=== PATIENT | male | born 1990 ===

== ENCOUNTER 2018-05-08 12:38 | Emergency (ER) | payer SELFPAY ==
[~2018-05-08] VITALS: Ht 180.3 cm; Wt 69.9 kg
[2018-05-08] MEDS ORDERED: OMEPRAZOLE10 M1 ORAL (12:53)
[2018-05-08 13:08] VITALS: BP 121/68
--- NOTE | 2018-05-08 13:13 | Emergency Room Report ---
History of Present Illness General Chief Complaint: Sore Throat Source: Patient Present Illness HPI 27-year-old male patient presents to ER complaining of sore throat and earache for the past 4 days. Reports that he has been able to eat during this time but it hurts to swallow. Reports intermittent fever up to 101. Reports treating it with Advil at home which releases fever symptoms. Denies chest pain, shortness of breath, abdominal pain, vomiting. Also complains of bilateral earache. Denies tinnitus or vision changes. Reports that he uses Q-tips at home. Denies other acute symptoms. Denies cough. Allergies: Coded Allergies: No Known Allergies (Unverified , 05/08/18) Patient History Past Medical History: see triage record Reviewed Nursing Documentation: PMH: Agreed; PSxH: Agreed Nursing Documentation-PMH Past Medical History: No History, Except For Review of Systems All Other Systems: negative except mentioned in HPI Physical Exam Vital Signs Date Time Temp Pulse Resp B/P (MAP) Pulse Ox O2 Delivery O2 Flow Rate FiO2 05/08/18 12:49 98.9 74 17 121/68 97 Room Air 99.0 Sp02 EP Interpretation: reviewed, normal General Appearance: well appearing, no apparent distress, alert, GCS 15, non- toxic Head: normocephalic, atraumatic Eyes: bilateral eye normal inspection, bilateral eye PERRL ENT: hearing grossly normal, normal pharynx, no angioedema, normal voice, TMs + canals normal - cerumen impaction bilaterally, uvula midline, moist mucus membranes, tonsillar swelling, pharyngeal erythema, tonsillar exudate Neck: full range of motion Respiratory: lungs clear, normal breath sounds, no rhonchi, no respiratory distress, no accessory muscle use, no wheezing, speaking full sentences Cardiovascular #1: regular rate, rhythm, no edema Psychiatric: mood/affect normal Skin: no rash Lymphatic: adenopathy - cervical Medical Decision Making PA Attestation Dr. Jacobs is my supervising Physician whom patient management has been discussed with. Diagnostic Impression: Primary Impression: Pharyngitis Additional Impression: Cerumen impaction ER Course Pt presents to ED c/o sore throat and earache. DDX considered but are not limited to pharyngitis, laryngitis, URI, peritonsillar abscess, tonsillitis. Low suspicion for peritonsillar abscess, no neck stiffness, no hot potato voice , no stridor. Does not require imaging at this time. VITAL SIGNS are WNL, patient is afebrile. Ordered Tylenol, viscous lidocaine and hydrogen peroxide. ER COURSE: Physical exam shows patient to have pharyngeal erythema, exudates, cervical lymphadenopathy reports fever, afebrile in ER however taking Advil at home, denies cough, likely pharyngitis, will provide antibiotic tx to patient. Salt water gargles. Tylenol for pain. Bilateral ear canals show cerumen impaction, ordered hydrogen peroxide to remove cerumen from ears. likely causing ear symptoms. Following removal of cerumen, TMs show no erythema, light reflex intact bilaterally, no TM perforation. Mild cerumen still remaining in ear canals bilaterally, will provide deep debrox at discharge. Do not use Q-tips. Patient reports feeling better following administration of medication DISCHARGE: Rx provided for Amoxicillin Rx provided for Tylenol for pain and fever symptoms Rx provided for Debrox At this time pt is stable for d/c to home. Patient is resting comfortably, in no acute distress, nontoxic appearing, talking without difficulty. Will provide with patient care instructions and any necessary prescriptions. Patient to take medication as instructed. Care plan and follow-up instructions provided. Patient questions asked and answered. Patient instructed to follow-up with primary care provider in 3 - 5 days. ER precautions given. Patient instructed to return to ER immediately for any new or worsening of symptoms including but not limited to intractable vomiting, difficulty breathing, inability to eat. - Please note that this Emergency Department Report was dictated using [employer] utilization management technology software, occasionally this can lead to erroneous entry secondary to interpretation by the dictation equipment. Last Vital Signs Date Time Temp Pulse Resp B/P (MAP) Pulse Ox O2 Delivery O2 Flow Rate FiO2 05/08/18 12:49 98.9 74 17 121/68 97 Room Air 99.0 Disposition: HOME, SELF-CARE Condition: Stable Scripts Acetaminophen* (TYLENOL EXTRA STRENGTH*) 500 Mg Tablet 500 MG ORAL Q8H PRN for Prn Headache/Temp > 101, #30 TAB 0 Refills Prov: Antoni Alexander P.A. 05/08/18 Carbamide Peroxide (DEBROX) 15 Ml Drops 10 DROP BOTH EARS TWICE A DAY for 4 Days, ML 0 Refills Prov: Antoni Alexander P.A. 05/08/18 Amoxicillin* (AMOXIL*) 500 Mg Capsule 500 MG ORAL EVERY 12 HOURS for 7 Days, #14 CAP Prov: Antoni Alexander 05/08/18 Patient Instructions: Cerumen Impaction, Pharyngitis, [id number] Additional Instructions: Followup with primary care provider in 3 -5 days. Salt water gargles Rx provided for Tylenol for pain and fever symptoms Do not use Q-tips. Drink plenty of water. Take medications as directed. Patient questions asked and answered. ER precautions given, patient instructed to return to ER immediately for any new or worsening of symptoms including but not limited to intractable vomiting, difficulty breathing, inability to eat. Antoni Alexander May 08, 2018 13:13
[2018-05-08] MEDS ORDERED: Lidocaine 2% Visc 15ml soln ORAL ONE (13:15)
[2018-05-08] MEDS ORDERED: Acetaminophen 500mg (ES) tab ORAL ONE (13:15)
[2018-05-08] MEDS ORDERED: Hydrogen Peroxide 473ml Bottle TOPIC ONE (13:15)
[2018-05-08] MEDS ORDERED: TYLENOL EXTRA500 MG ORAL (14:13)
[2018-05-08] MEDS ORDERED: DEBROX15 M1 BOTH EARS (14:13)
[2018-05-08] MEDS ORDERED: AMOXICILLIN500 MG ORAL (14:13)
[2018-05-08 15:17] VITALS: BP 121/68
== END 2018-05-08 17:19 | disposition home or self-care (01) ==
LOC: EMR 15:53
DX: J02.9 Acute pharyngitis, unspecified (principal); H61.23 Impacted cerumen, bilateral; R50.9 Fever, unspecified
CPT/HCPCS: 99284